=== PATIENT | female | born 1945 | race Caucasian/White ===

== ENCOUNTER → 2017-11-10 | Outpatient (CLI) | payer OTHER ==
[~2017-11-10] MED LIST: ALPR-410 PO; BACL10TA PO; FEXO-59 PO; LEVO112T4 PO; MELO-108 PO; OMEP40CA37 PO; PARO30TA60 PO; PRED10TA3 PO; TRAM50TA4 PO
== END | disposition home or self-care (01) ==
LOC: OIH 15:13
PROVIDERS: ATTEND Physician Assistant Medical
DX: K59.04 Chronic idiopathic constipation (principal); Z90.49 Acquired absence of other specified parts of digestive tract
CPT/HCPCS: 74018

== ENCOUNTER → 2018-01-02 | Outpatient (CLI) | payer OTHER | END | disposition home or self-care (01) | LOC: OIH 12:32 | PROVIDERS: ATTEND Internal Medicine | DX: J20.9 Acute bronchitis, unspecified (principal); M47.895 Other spondylosis, thoracolumbar region | CPT/HCPCS: 71046 ==

== ENCOUNTER → 2018-05-23 | Outpatient (CLI) | payer OTHER ==
[~2018-05-23] MED LIST changes: +REGADENOSON 0.4 MG/5 ML PF SYG IVP SCH
== END | disposition home or self-care (01) ==
LOC: SHCH 08:49
PROVIDERS: ATTEND Internal Medicine Cardiovascular Disease
DX: I20.8 Other forms of angina pectoris (principal)
CPT/HCPCS: 78452; 93017; 96374; A9500 ×2; J2785

== ENCOUNTER → 2019-01-12 | Outpatient (CLI) | payer OTHER ==
[~2019-01-12] MED LIST changes: +OMEP40CA13 PO; -OMEP40CA37 PO; -REGADENOSON 0.4 MG/5 ML PF SYG IVP SCH
== END | disposition home or self-care (01) ==
LOC: OIH 12:23
PROVIDERS: ATTEND Family Medicine
DX: M47.817 Spondylosis without myelopathy or radiculopathy, lumbosacral region (principal); M43.16 Spondylolisthesis, lumbar region; M48.061 Spinal stenosis, lumbar region without neurogenic claudication
CPT/HCPCS: 72100

== ENCOUNTER → 2019-04-23 | Outpatient (CLI) | payer OTHER | END | disposition home or self-care (01) | LOC: OIH 14:33 | PROVIDERS: ATTEND Podiatrist | DX: M85.872 Other specified disorders of bone density and structure, left ankle and foot (principal); M24.675 Ankylosis, left foot; M25.775 Osteophyte, left foot; M20.12 Hallux valgus (acquired), left foot; B35.1 Tinea unguium; M15.0 Primary generalized (osteo)arthritis | CPT/HCPCS: 73630 ==

== ENCOUNTER → 2019-10-09 | Outpatient (CLI) | payer OTHER | END | disposition home or self-care (01) | LOC: OIH 14:49 | PROVIDERS: ATTEND Podiatrist | DX: M19.072 Primary osteoarthritis, left ankle and foot (principal); M25.775 Osteophyte, left foot; M84.375A Stress fracture, left foot, initial encounter for fracture; L60.0 Ingrowing nail; M20.12 Hallux valgus (acquired), left foot; B35.1 Tinea unguium | CPT/HCPCS: 73630 ==

== ENCOUNTER → 2019-10-22 | Outpatient (CLI) | payer OTHER | END | disposition home or self-care (01) | LOC: OIH 11:03 | PROVIDERS: ATTEND Internal Medicine | DX: J44.9 Chronic obstructive pulmonary disease, unspecified (principal); Q25.49 Other congenital malformations of aorta | CPT/HCPCS: 71046 ==

== ENCOUNTER → 2020-01-24 | Outpatient (CLI) | payer OTHER ==
[~2020-01-24] MED LIST changes: +ALBU8.5H8 IH; -ALPR-410 PO; +ASPI-1005 PO; +Areds PO; +BUDE10.22 IH; +CARB100 PO; +FAMO20TA8 PO; -FEXO-59 PO; +FLUT16H NASAL; +FOLI1 PO; +GABA600T10 PO; +HYDR-4457 PO; +LEVE10006 PO; +LEVO112T7 PO; +LUBI24CA2 PO; -MELO-108 PO; +MONT10TA96 PO; -OMEP40CA13 PO; -PRED10TA3 PO; +PRED5TAB PO; +TIOT18CA3 IH; -TRAM50TA4 PO; +citracal PO
== END | disposition home or self-care (01) ==
LOC: RAH 10:35
PROVIDERS: ATTEND Physician Assistant Medical
DX: K59.04 Chronic idiopathic constipation (principal)
CPT/HCPCS: 74018

== ENCOUNTER → 2020-08-13 | Outpatient (CLI) | payer MEDICARE ==
[~2020-08-13] MED LIST changes: +MONT10TA32 PO; -MONT10TA96 PO
== END | disposition home or self-care (01) ==
LOC: RAH 10:48
PROVIDERS: ATTEND Internal Medicine
DX: J34.2 Deviated nasal septum (principal); J01.10 Acute frontal sinusitis, unspecified
CPT/HCPCS: 70486